=== PATIENT | female | born 1955 | race Caucasian/White ===

== ENCOUNTER 2019-03-07 05:57 | Day surgery (SDC) | payer BC ==
[2019-03-07] MEDS ORDERED: DIPRIVAN 200 MG/20 ML IV ONE (05:58)
[2019-03-07] MEDS ORDERED: Lactated Ringers 1,000 ML IV SCH (06:30)
--- NOTE | 2019-03-07 09:02 | OP ---
SURGERY DATE/TIME: 03/07/2019 0800 PREOPERATIVE DIAGNOSIS: Screening exam. POSTOPERATIVE DIAGNOSIS: Normal colon. PROCEDURE: Colonoscopy. SURGEON: Dr. Venegas. ANESTHESIA: MAC. Medications given by anesthesia department. HISTORY: The patient is a 63 year-old white female presenting now for screening colonoscopy. She reports she had one more than ten years ago which was normal. She was reappraised of the risks of the procedure including the risk of perforation, phlebitis, untoward reaction to medication, bleeding and missed lesions. The patient verbalized her understanding and desired to have the procedure performed. DESCRIPTION OF PROCEDURE: The patient was given the medications by the anesthesia department. She had continuous pulse oximetry, ECG monitoring, intermittent blood pressure monitoring and tidal CO2 monitoring during the examination. She was placed in the left lateral decubitus position. A digital rectal examination was performed and revealed normal anal sphincter tone and no masses. The flexible Olympus pediatric colonoscope was used to intubate the rectum. A view of the colon was developed sequentially to the cecum. Upon insertion and withdrawal, no mucosal lesions were encountered. The scope was removed from the patient who tolerated the procedure well and was sent back to OP recovery in good condition. The prep was noted to be good.
[2019-03-07 09:31] VITALS: BP 128/78; PULSE 58; O2SAT 97
== END 2019-03-07 09:25 | disposition home or self-care (01) ==
LOC: SDC 05:57
PROVIDERS: ATTEND Family Medicine
DX: Z12.11 Encounter for screening for malignant neoplasm of colon (principal)
CPT/HCPCS: J2704

== ENCOUNTER 2019-09-22 18:15 | Observation (INO) | payer MEDICARE, OTHER ==
[2019-09-22] MEDS ORDERED: Sodium Chloride 0.9% 1000 ML 1,000 ML IV STA (18:43)
[2019-09-22] MEDS ORDERED: MORPHINE SULFATE 4 MG INJ IV ONE (18:43)
[2019-09-22] MEDS ORDERED: BENADRYL 50 MG/ML IV ONE ×2 (18:43→21:10)
[2019-09-22] MEDS ORDERED: Protonix 40MG Tablet PO ONE (18:43)
[2019-09-22] MEDS ORDERED: Zofran 4 MG/2 ML VIAL IV ONE (18:43)
--- NOTE | 2019-09-22 18:48 | ERPHSYRPT ---
- History of Present Illness Time Seen by Provider: 09/22/19 18:30 Historian: patient Exam Limitations: no limitations Physician History: Sudden onset of LUQ abdominal pain while driving. 3 episodes of vomiting after pain occurred. Timing/Duration: hour(s) (1.5) Activities at Onset: other (driving a vehicle) Quality: aching Abdominal Pain Onset Location: LUQ Pain Radiation: back Severity of Pain-Max: severe Severity of Pain-Current: severe Modifying Factors: Improves With: nothing Associated Symptoms: nausea, other (hemoptysis), No back, No chest pain, No diaphoresis, No diarrhea, No fever/chills, No fatigue, No headache, No heartburn , No loss of appetite, No neck pain, No rash, No shortness of breath, No syncope , No vomiting, No weakness Previous symptoms: no prior history, no recent treatment Allergies/Adverse Reactions: Sulfa (Sulfonamide Antibiotics) Allergy (Unknown, Verified 09/22/19 18:43) Home Medications: Alendronate Sodium 70 mg [Fosamax 70 MG] 70 mg PO WEEKLY 02/27/19 [History ] Amlodipine Besylate 5 mg [Norvasc 5 mg] 5 mg PO DAILY 02/27/19 [History] Aspirin EC 81 mg [Ecotrin 81 mg] 81 mg PO DAILY 02/27/19 [History] Benazepril HCl 20 mg PO DAILY 02/27/19 [History] Calcium Carbonate/Vitamin D3 [Calcium 600 + Vit D Tablet] 1 each PO DAILY [History] Magnesium 250 mg PO DAILY 02/27/19 [History] Multivit-Min/Iron/Folic/Lutein [Multivitamin Women 50 Plus Tab] 1 each PO DAILY 02/27/19 [History] Simvastatin 20Mg [Zocor 20Mg] 20 mg PO DAILY 02/27/19 [History] - Review of Systems Constitutional: No Fever, No Chills Eyes: No Eye Pain, No Vision Changes Ears, Nose, & Throat: No Mouth Swelling, No Throat Swelling, No Stridor Respiratory: No Cough, No Dyspnea Cardiac: No Chest Pain, No Palpitations, No Syncope Abdominal/Gastrointestinal: Abdominal Pain, Nausea, Vomiting, Hematemesis, No Diarrhea, No Hematochezia, No Melena Genitourinary Symptoms: No Dysuria, No Frequency, No Hematuria, No Flank Pain Musculoskeletal: No Arthralgias, No Back Pain, No Neck Pain Skin: No Pruritis, No Rash Neurological: No Focal Weakness, No Parasthesia, No Seizure, No Vertigo Psychological: No Anxiety Hematologic/Lymphatic: No Easy Bleeding, No Easy Bruising All Other Systems: Reviewed and Negative - Past Medical History Neurological History: Other ENT History: No Pertinent History Cardiac History: High Cholesterol, Hypertension Respiratory History: No Pertinent History Endocrine Medical History: No Pertinent History Musculoskeletal History: Arthritis, Osteoarthritis GI Medical History: No Pertinent History History: No Pertinent History Psycho-Social History: No Pertinent History Female Reproductive Disorders: No Pertinent History Other Medical History: " Black out spell" when she was first diagnosed with HTN. Hx of skin cancer, hard of hearing. No hearing aids. Steroid injection in left knee. - Past Surgical History Past Surgical History: Yes Neuro Surgical History: No Pertinent History Cardiac: No Pertinent History Respiratory: No Pertinent History Gastrointestinal: No Pertinent History Genitourinary: No Pertinent History Musculoskeletal: Other Female Surgical History: Tubal Ligation, Other Other Surgical History: Laser surgery on cervix. Discectomy in neck.colonoscopy - Social History Smoking Status: Never smoker Exposure to second hand smoke: Yes Drug Use: none - Nursing Vital Signs Nursing Vital Signs: Initial Vital Signs Temperature 97.8 F 09/22/19 18:23 Pulse Rate 63 09/22/19 18:23 Respiratory Rate 18 09/22/19 18:23 Blood Pressure 155/84 09/22/19 18:23 O2 Sat by Pulse Oximetry 98 09/22/19 18:23 Pain Scale Pain Intensity 8 - Physical Exam General Appearance: no apparent distress, alert Eye Exam: PERRL/EOMI, eyes nml inspection, No scleral icterus Ears, Nose, Throat Exam: normal ENT inspection, TMs normal, pharynx normal, moist mucous membranes, No dry mucous membranes Neck Exam: normal inspection, non-tender, supple, full range of motion, No meningismus Respiratory Exam: normal breath sounds, lungs clear, airway intact, No chest tenderness, No respiratory distress, No diminished breath sounds, No accessory muscle use, No prolonged expirations, No crackles/rales, No rhonchi, No wheezing , No stridor Cardiovascular Exam: regular rate/rhythm, normal heart sounds, normal peripheral pulses, capillary refill <2 sec Gastrointestinal/Abdomen Exam: soft, normal bowel sounds, tenderness (LUQ), No distention, No mass, No ecchymosis, No rebound Back Exam: normal inspection, normal range of motion, No CVA tenderness, No vertebral tenderness, No rash Extremity Exam: normal inspection, normal range of motion, pelvis stable, No deformities, No martha's sign, No swelling Neurologic Exam: alert, oriented x 3, cooperative, occupational health and safety officer II-XII nml as tested, normal mood/affect, sensation nml, No motor deficits Skin Exam: normal color, warm, dry, No rash, No cyanosis SpO2 Interpretation: normal O2 Delivery: Room Air - Course Nursing assessment & vital signs reviewed: Yes EKG Interpreted by Me: RATE (69), Sinus Rhythm, NORMAL AXIS, NORMAL INTERVALS, NORMAL QRS, NORMAL ST-T, Other (negative previous EKG for comparison) - CT Exams Abdomen/Pelvis CT Interpretation: Other (Per Radiologist Interpretation: 2.3mm L UVJ stone with mild hydronephrosis and hydroureter. Small hepatic hemangioma and tiny hepatic cyst) Ordered Tests: Active Orders 24 hr Category Date Time Status EKG-ER Only STAT Care 09/22/19 18:43 Active IV Insertion STAT Care 09/22/19 18:43 Active NPO (ED) STAT Care 09/22/19 18:43 Active ABDOMEN AND PELVIS W/0 CONTRAS [CT] Stat Exams 09/22/19 18:44 Taken AMYLASE Stat Lab 09/22/19 18:30 Completed CBC W DIFF Stat Lab 09/22/19 18:43 Completed CMP Stat Lab 09/22/19 18:30 Completed CULTURE,URINE Stat Lab 09/22/19 Received LIPASE Stat Lab 09/22/19 18:30 Completed Lactic Acid Stat Lab 09/22/19 18:57 Completed PROTIME WITH INR Stat Lab 09/22/19 18:43 Completed TROPONIN Q3H Lab 09/22/19 18:45 Completed TROPONIN Q3H Lab 09/22/19 21:57 Received TROPONIN Q3H Lab 09/23/19 00:45 Ordered TROPONIN Q3H Lab 09/23/19 03:45 Ordered TROPONIN Q3H Lab 09/23/19 06:45 Ordered UA W/RFX UR CULTURE Stat Lab 09/22/19 Completed Medication Summary Discontinued Medications Generic Name Dose Route Start Last Admin Trade Name Freq PRN Reason Stop Dose Admin Diphenhydramine HCl 25 mg 09/22/19 18:43 09/22/19 19:06 Benadryl 50 Mg/Ml IV 09/22/19 18:44 25 mg STAT ONE Administration Diphenhydramine HCl Confirm 09/22/19 18:57 Benadryl 50 Mg/Ml Administered 09/22/19 18:58 Dose 50 mg .ROUTE .STK-MED ONE Diphenhydramine HCl 25 mg 09/22/19 21:10 09/22/19 21:17 Benadryl 50 Mg/Ml IV 09/22/19 21:11 25 mg STAT ONE Administration Diphenhydramine HCl Confirm 09/22/19 21:15 Benadryl 50 Mg/Ml Administered 09/22/19 21:16 Dose 50 mg .ROUTE .STK-MED ONE Hydromorphone HCl 1 mg 09/22/19 21:10 09/22/19 21:17 Hydromorphone 1 Mg/Ml Ampule IV 09/22/19 21:11 1 mg STAT ONE Administration Hydromorphone HCl Confirm 09/22/19 21:16 Hydromorphone 1 Mg/Ml Ampule Administered 09/22/19 21:17 Dose 1 mg .ROUTE .STK-MED ONE Sodium Chloride 1,000 mls @ 999 mls/hr 09/22/19 18:43 09/22/19 19:07 Sodium Chloride 0.9% 1000 Ml IV 09/22/19 19:43 999 mls/hr .Q1H1M STA Administration Sodium Chloride Confirm 09/22/19 18:58 Sodium Chloride 0.9% 1000 Ml Administered 09/22/19 18:59 Dose 1,000 mls @ ud .ROUTE .STK-MED ONE Morphine Sulfate 4 mg 09/22/19 18:43 09/22/19 19:06 Morphine Sulfate 4 Mg Inj IV 09/22/19 18:44 4 mg STAT ONE Administration Morphine Sulfate Confirm 09/22/19 18:58 Morphine Sulfate 4 Mg Inj Administered 09/22/19 18:59 Dose 4 mg .ROUTE .STK-MED ONE Ondansetron HCl 4 mg 09/22/19 18:43 09/22/19 19:05 Zofran 4 Mg/2 Ml Vial IV 09/22/19 18:44 4 mg STAT ONE Administration Ondansetron HCl Confirm 09/22/19 19:04 Zofran 4 Mg/2 Ml Vial Administered 09/22/19 19:05 Dose 4 mg .ROUTE .STK-MED ONE Pantoprazole Sodium 40 mg 09/22/19 18:43 09/22/19 19:12 Protonix 40mg Tablet PO 09/22/19 18:44 Not Given STAT ONE Pantoprazole Sodium 40 mg 09/22/19 18:58 09/22/19 19:11 Protonix 40 Mg Iv IV 09/22/19 18:59 40 mg STAT ONE Administration Pantoprazole Sodium Confirm 09/22/19 18:58 Protonix 40 Mg Iv Administered 09/22/19 18:59 Dose 40 mg IV .STK-MED ONE Lab/Rad Data: Laboratory Result Diagrams 09/22/19 18:43 09/22/19 18:30 Laboratory Results 09/22/19 09/22/19 09/22/19 Range/Units Unknown 18:57 18:45 WBC (4.0-10.5) K/mm3 RBC (4.1-5.4) M/mm3 Hgb (12.0-16.0) gm/dl Hct (35-47) % MCV (78-100) fl MCH (26-32) pg MCHC (32-36) g/dl RDW (11.5-14.0) % Plt Count (150-450) K/mm3 MPV (6-9.5) fl Gran % (36.0-66.0) % Eos # (Auto) (0-0.5) Absolute Lymphs (auto) (1.0-4.6) Absolute Monos (auto) (0.0-1.3) Lymphocytes % (24.0-44.0) % Monocytes % (0.0-12.0) % Eosinophils % (0.00-5.0) % Basophils % (0.0-0.4) % Absolute Granulocytes (1.4-6.9) Basophils # (0-0.4) PT (9.95-12.35) SECONDS INR (0.8-3.0) Sodium (137-145) mmol/L Potassium (3.5-5.1) mmol/L Chloride (98-107) mmol/L Carbon Dioxide (22-30) mmol/L Anion Gap (5-15) MEQ/L BUN (7-17) mg/dL Creatinine (0.52-1.04) mg/dL Estimated GFR ML/MIN Glucose (74-106) mg/dL Lactic Acid 1.2 (0.4-2.0) Calcium (8.4-10.2) mg/dL Total Bilirubin (0.2-1.3) mg/dL AST (14-36) U/L ALT (0-35) U/L Alkaline Phosphatase (38-126) U/L Troponin I < 0.012 (0.000-0.034) ng/mL Serum Total Protein (6.3-8.2) g/dL Albumin (3.5-5.0) g/dL Amylase (30-110) U/L Lipase (23-300) U/L Urine Color YELLOW (YELLOW) Urine Appearance CLOUDY (CLEAR) Urine pH 8.0 (5-6) Ur Specific Norris 1.010 (1.005-1.025) Urine Protein NEGATIVE (Negative) Urine Ketones NEGATIVE (NEGATIVE) Urine Blood NEGATIVE (0-5) James/ul Urine Nitrite NEGATIVE (NEGATIVE) Urine Bilirubin NEGATIVE (NEGATIVE) Urine Urobilinogen NEGATIVE (0-1) mg/dL Ur Leukocyte Esterase SMALL (NEGATIVE) Urine WBC (Auto) 11-15 (0-5) /HPF Urine RBC (Auto) 6-10 (0-2) /HPF U Epithel Cells (Auto) RARE (FEW) /HPF Urine Bacteria (Auto) RARE (NEGATIVE) /HPF Unidentified Crystals 10-25 (NEGATIVE) /HPF Other Casts (Auto) 0-2 (NEGATIVE) /LPF Urine Mucus (Auto) SLIGHT (NEGATIVE) /HPF Urine Culture Reflexed YES (NO) Urine Glucose NEGATIVE (NEGATIVE) mg/dL 09/22/19 09/22/19 09/22/19 Range/Units 18:43 18:43 18:30 WBC 9.1 (4.0-10.5) K/mm3 RBC 4.67 (4.1-5.4) M/mm3 Hgb 13.8 (12.0-16.0) gm/dl Hct 41.0 (35-47) % MCV 87.8 (78-100) fl MCH 29.6 (26-32) pg MCHC 33.7 (32-36) g/dl RDW 13.3 (11.5-14.0) % Plt Count 268 (150-450) K/mm3 MPV 10.0 H (6-9.5) fl Gran % 72.1 H (36.0-66.0) % Eos # (Auto) 0.07 (0-0.5) Absolute Lymphs (auto) 1.88 (1.0-4.6) Absolute Monos (auto) 0.58 (0.0-1.3) Lymphocytes % 20.6 L (24.0-44.0) % Monocytes % 6.3 (0.0-12.0) % Eosinophils % 0.8 (0.00-5.0) % Basophils % 0.2 (0.0-0.4) % Absolute Granulocytes 6.59 (1.4-6.9) Basophils # 0.02 (0-0.4) PT 12.4 H (9.95-12.35) SECONDS INR 1.10 (0.8-3.0) Sodium 144 (137-145) mmol/L Potassium 3.8 (3.5-5.1) mmol/L Chloride 109 H (98-107) mmol/L Carbon Dioxide 25 (22-30) mmol/L Anion Gap 13.7 (5-15) MEQ/L BUN 13 (7-17) mg/dL Creatinine 0.76 (0.52-1.04) mg/dL Estimated GFR > 60.0 ML/MIN Glucose 145 H (74-106) mg/dL Lactic Acid (0.4-2.0) Calcium 10.5 H (8.4-10.2) mg/dL Total Bilirubin 0.40 (0.2-1.3) mg/dL AST 23 (14-36) U/L ALT 22 (0-35) U/L Alkaline Phosphatase 63 (38-126) U/L Troponin I (0.000-0.034) ng/mL Serum Total Protein 7.3 (6.3-8.2) g/dL Albumin 4.4 (3.5-5.0) g/dL Amylase 65 (30-110) U/L Lipase 34 (23-300) U/L Urine Color (YELLOW) Urine Appearance (CLEAR) Urine pH (5-6) Ur Specific Norris (1.005-1.025) Urine Protein (Negative) Urine Ketones (NEGATIVE) Urine Blood (0-5) James/ul Urine Nitrite (NEGATIVE) Urine Bilirubin (NEGATIVE) Urine Urobilinogen (0-1) mg/dL Ur Leukocyte Esterase (NEGATIVE) Urine WBC (Auto) (0-5) /HPF Urine RBC (Auto) (0-2) /HPF U Epithel Cells (Auto) (FEW) /HPF Urine Bacteria (Auto) (NEGATIVE) /HPF Unidentified Crystals (NEGATIVE) /HPF Other Casts (Auto) (NEGATIVE) /LPF Urine Mucus (Auto) (NEGATIVE) /HPF Urine Culture Reflexed (NO) Urine Glucose (NEGATIVE) mg/dL - Progress Progress: improved Progress Note: 09/22/19 21:11 Pain has returned. Patient will be given Dilaudid and Benadryl. 09/22/19 22:15 Patient's pain has improved with no further vomiting. No abdominal pain on repeat evaluation. 09/22/19 22:20 Patient would like to be admitted as she still has pain and is worried she would not tolerate orally medications, beverage and food at this time. Discussed with .: Cristhian (22:24, Discussed the patient with Dr Venegas, patient's physician and Hospitalist. Dr Venegas accepted the patient for observation tp [facility]) Counseled pt/family regarding: lab results, diagnosis, need for follow-up, rad results - Departure Departure Disposition: Observation (to [facility] ) Clinical Impression: LUQ abdominal pain, Renal colic on left side, Ureterolithiasis, Hydronephrosis , left, Hydroureter on left, Hepatic hemangioma, Hepatic cyst Hypertension Qualifiers: Hypertension type: essential hypertension Qualified Code(s): I10 - Essential ( primary) hypertension Condition: Good Critical Care Time: No Referrals: MAMTA VENEGAS [Primary Care Provider] - Instructions: Kidney Stones (DC), Acute Abdomen (Belly Pain), Cysts in the Liver Additional Instructions: Return immediately to the emergency department if any worse abdominal pain, unable to take medication orally, new fevers, new painful urination or any other concerning signs or symptoms that were not present at today's emergency department visit for immediate re-evaluation in the emergency department. Prescriptions: Oxycodone HCl/Acetaminophen [Percocet 5-325 mg Tablet] 1 each PO Q6H PRN PRN # 12 tablet MDD 4 PRN Reason: Pain Ondansetron ODT 4 MG [Zofran Odt 4 mg] 4 mg PO Q8H PRN PRN #10 tab.rapdis PRN Reason: Nausea Tamsulosin HCl 0.4 mg [Flomax 0.4 MG] 0.4 mg PO DAILY #7 cap
[2019-09-22] MEDS ORDERED: BENADRYL 50 MG/ML ONE ×2 (18:57→21:15)
[2019-09-22] MEDS ORDERED: PROTONIX 40 MG IV IV ONE ×2 (18:58)
[2019-09-22] MEDS ORDERED: Sodium Chloride 0.9% 1000 ML 1,000 ML ONE (18:58)
[2019-09-22] MEDS ORDERED: MORPHINE SULFATE 4 MG INJ ONE (18:58)
[2019-09-22] MEDS ORDERED: Zofran 4 MG/2 ML VIAL ONE (19:04)
[2019-09-22 19:05] LABS: Absolute Neutrophil Ct (ANC) 6.59 (1.4-6.9); BASOPHIL % 0.2 % (0.0-0.4); Basophil (Absolute #) 0.02 (0-0.4); Eosinophil % 0.8 % (0.00-5.0); Eosinophil (Absolute #) 0.07 (0-0.5); Hemoglobin 13.8 gm/dl (12.0-16.0); Lymphocyte (Absolute #) 1.88 (1.0-4.6); Lymphocytes % 20.6 % (24.0-44.0); Mean Cell Volume 87.8 fl (78-100); Mean Corpuscular Hemoglobin 29.6 pg (26-32); Mean Corpuscular Hgb Concent. 33.7 g/dl (32-36); Monocyte (Absolute #) 0.58 (0.0-1.3); Monocytes % 6.3 % (0.0-12.0); Neutrophil % 72.1 % (36.0-66.0); Platelet Count 268 K/mm3 (150-450); Red Blood Count 4.67 M/mm3 (4.1-5.4); Red Cell Distribution Width 13.3 % (11.5-14.0); White Blood Count 9.1 K/mm3 (4.0-10.5)
[2019-09-22 19:15] LABS: INR 1.1 (0.8-3.0); PROTIME 12.4 SECONDS (9.95-12.35)
[2019-09-22 19:19] LABS: ALBUMIN 4.4 g/dL (3.5-5.0); ALKALINE PHOSPHATASE 63 U/L (38-126); AMYLASE 65 U/L (30-110); ANION GAP 13.7 MEQ/L (5-15); BLOOD UREA NITROGEN 13 mg/dL (7-17); CHLORIDE 109 mmol/L (98-107); Calcium 10.5 mg/dL (8.4-10.2); Carbon Dioxide 25 mmol/L (22-30); Creatinine 1 0.76 mg/dL (0.52-1.04); Glucose 145 mg/dL (74-106); LIPASE 34 U/L (23-300); Potassium 3.8 mmol/L (3.5-5.1); SGOT/AST 23 U/L (14-36); SGPT/ALT 22 U/L (0-35); SODIUM 144 mmol/L (137-145); Total Protein 7.3 g/dL (6.3-8.2)
[2019-09-22 19:21] LABS: Appearance CLOUDY (CLEAR); Bacteria RARE /HPF (NEGATIVE); Bilirubin NEGATIVE (NEGATIVE); Blood NEGATIVE Ery/ul (0-5); Epithelial Cells RARE /HPF (FEW); Glucose NEGATIVE (NEGATIVE); Ketones NEGATIVE (NEGATIVE); Leukocyte Esterase SMALL (NEGATIVE); Mucus SLIGHT /HPF (NEGATIVE); Nitrite NEGATIVE (NEGATIVE); Protein,Urine Dip NEGATIVE (Negative); Urobilinogen NEGATIVE mg/dL (0-1)
[2019-09-22] MEDS ORDERED: Hydromorphone 1 mg/ml Ampule IV ONE (21:10)
[2019-09-22] MEDS ORDERED: Hydromorphone 1 mg/ml Ampule ONE (21:16)
[2019-09-22] MEDS ORDERED: TYLENOL 325 MG PO PRN (23:03)
[2019-09-22] MEDS: Sodium Chloride 0.9% 1000 ML 1,000 ML IV SCH (23:52)
[2019-09-23] MEDS: Zofran 4 MG/2 ML VIAL IV PRN ×2 (00:47→08:25)
[2019-09-23] MEDS: DILAUDID 2 MG INJECTION IV PRN ×2 (00:47→08:25)
[2019-09-23 04:27] LABS: ANION GAP 14.2 MEQ/L (5-15); BLOOD UREA NITROGEN 12 mg/dL (7-17); CHLORIDE 108 mmol/L (98-107); Calcium 9.5 mg/dL (8.4-10.2); Carbon Dioxide 25 mmol/L (22-30); Creatinine 1 0.76 mg/dL (0.52-1.04); Glucose 149 mg/dL (74-106); Potassium 4.2 mmol/L (3.5-5.1); SODIUM 142 mmol/L (137-145)
[2019-09-23 05:35] LABS: Absolute Neutrophil Ct (ANC) 10.78 (1.4-6.9); BASOPHIL % 0.2 % (0.0-0.4); Basophil (Absolute #) 0.02 (0-0.4); Eosinophil (Absolute #) 0 (0-0.5); Hematocrit 40.9 % (35-47); Hemoglobin 13.5 gm/dl (12.0-16.0); Lymphocyte (Absolute #) 1.07 (1.0-4.6); Lymphocytes % 8.6 % (24.0-44.0); Mean Cell Volume 89.3 fl (78-100); Mean Corpuscular Hemoglobin 29.5 pg (26-32); Mean Platelet Volume 10.1 fl (6-9.5); Monocyte (Absolute #) 0.62 (0.0-1.3); Neutrophil % 86.2 % (36.0-66.0); Platelet Count 275 K/mm3 (150-450); Red Blood Count 4.58 M/mm3 (4.1-5.4); Red Cell Distribution Width 13.4 % (11.5-14.0); White Blood Count 12.5 K/mm3 (4.0-10.5)
--- NOTE | 2019-09-23 08:05 | HP ---
CHIEF COMPLAINT: Left lower quadrant abdominal pain. HISTORY OF PRESENT ILLNESS: The patient is a 64 year-old white female who reports sudden onset of abdominal pain when she was in her car getting ready to rock picker her granddaughter. The patient felt so bad she could not rock picker her granddaughter and presented to the emergency room. The patient was found in the emergency room to have a stone in the left ureterovesical junction with corresponding hydronephrosis mild in the left side. The patient denies having previous stones. She does report frequent urinary tract infections for which she has seen VALENTIN Montiel at Dr. Viveros's office and in fact saw him last week for what she thought was developing urinary tract infection. The patient has no family history of stones previously. She does take calcium for osteoporosis treatment as well as Fosamax. MEDICATIONS: Currently includes Fosamax 30 mg a day, Norvasc 5 mg a day, aspirin 81 mg a day, benazepril 20 mg a day, calcium with vitamin D at night, magnesium supplements for leg cramps, multivitamins, Simvastatin, Advair 20 mg a day. ALLERGIES: SULFA. PAST MEDICAL/SURGICAL HISTORY: Significant for osteoporosis and hypertension. The patient takes Simvastatin for hyperlipidemia. PHYSICAL EXAMINATION: Revealed a well-nourished, well-developed 64 year-old white female currently in no distress. Vital signs on admission showed temperature 97.8F, pulse 62, respiratory rate 18 and blood pressure 165/84. HEENT: Normocephalic, atraumatic. Pupils equal round reactive to light. Extraocular movements intact. Oropharynx is pink and moist. NECK: Supple without lymphadenopathy, thyromegaly or JVD. CHEST: Clear to auscultation. HEART: Regular rate and rhythm. ABDOMEN: Soft but tender in the left lower quadrant. No palpable masses. EXTREMITIES: Without cyanosis, clubbing or edema. NEUROLOGIC: The patient is alert and oriented x3. LAB DATA AND TESTS: Laboratory studies revealed a white count of 12,500, hemoglobin 13.5, PLT count 275,000. Troponins less than 0.012. Sugar 149, BUN 12, creatinine 0.76. Electrolytes were normal. The patient's amylase and lipase were normal. Liver enzymes were normal. She did have CT scan showing the 2 to 3 mm left ureterovesical junction stone with hydronephrosis. ASSESSMENT: A patient with renal colic. She has been admitted to the hospital for IV fluids and pain control. She will be continued on her usual home medications once the pain has been resolved for 12 hours. We will allow her to discharge home and a prescription for Percocet 5/325 mg #28 to take on an every four hours PRN basis for the pain. She is to follow up in the office in one week or return to the hospital if she has further problems in the interim.
[2019-09-23] MEDS: Sodium Chloride 0.9% 1000 ML 1,000 ML IV SCH (08:26)
[2019-09-23] MEDS ORDERED: Zofran 4 MG/2 ML VIAL IV PRN (08:45)
[2019-09-23] MEDS ORDERED: TYLENOL 325 MG PO PRN (08:45)
--- NOTE | 2019-09-23 08:53 | XRAY ---
Indication: Left lower quadrant pain, emesis, and hemoptysis. UTI. Multiple contiguous axial images obtained through the abdomen and pelvis without contrast as ordered. Comparison: None Lung bases demonstrates bibasilar fibrosis/scarring without focal infiltrate or effusion. Heart is not enlarged. Small hiatal hernia. Noncontrasted stomach and bowel loops appear nonobstructed. Normal appendix. Left UVJ demonstrates 2-3 mm calculus. Proximal left ureter is prominent up to 8mm and there is mild hydronephrosis with minimal perinephric stranding consistent with obstructive uropathy. No free fluid/air. Bilateral tubal ligation clips. Liver demonstrates at least 2 hepatic cysts, largest in the left lobe measuring 1.2 cm. A few hepatic/splenic calcified granulomas. Remaining liver, gallbladder, pancreas, spleen, adrenal glands, right kidney, right ureter, bladder, uterus, and aorta appear unremarkable for noncontrast exam. Osseous structures intact. Impression: 1. 2-3 mm distal left UVJ calculus producing obstructive uropathy as detailed. 2. Incidental small hiatal hernia, hepatic cysts, and evidence for old granulomatous disease. CT DI 21.74
[2019-09-23] MEDS ORDERED: MAG-OX 400 PO PRN (08:57)
[2019-09-23] MEDS ORDERED: [UNRECOGNIZED DRUG - OTHER] PO SCH (10:00)
[2019-09-23] MEDS ORDERED: IRON PO SCH (10:00)
[2019-09-23] MEDS ORDERED: MULTIVIT MIN PO SCH (10:00)
[2019-09-23] MEDS ORDERED: NORVASC 5 MG PO SCH (10:00)
[2019-09-23] MEDS ORDERED: Lotensin 10 MG PO SCH (10:00)
[2019-09-23] MEDS ORDERED: ENOXAPARIN SODIUM SQ SCH (10:00)
[2019-09-23] MEDS ORDERED: THERAGRAN MULTIVITAMIN PO SCH (10:00)
[2019-09-23] MEDS ORDERED: FLUZONE HIGH-DOSE 2019-20 SYR IM ONE (10:00)
[2019-09-23] MEDS ORDERED: BENAZEPRIL HCL 20 MG PO SCH (10:00)
[2019-09-23] MEDS ORDERED: Pepcid 20 MG PO SCH (10:00)
[2019-09-23] MEDS ORDERED: LUTEIN PO SCH (10:00)
[2019-09-23] MEDS ORDERED: Flomax 0.4 MG PO SCH (10:00)
[2019-09-23] MEDS ORDERED: FOLIC PO SCH (10:00)
[2019-09-23] MEDS ORDERED: PERCOCET TABLET 5/325MG PO PRN (10:23)
[2019-09-23] MEDS ORDERED: ZOFRAN ODT 4 MG PO PRN (10:23)
[2019-09-23 12:22] VITALS: BP 130/72; PULSE 70; O2SAT 97
[2019-09-23] MEDS ORDERED: NON-FORMULARY ITEM (Magnesium [Magnesium] 250 MG) PO SCH (22:00)
[2019-09-23] MEDS ORDERED: ECOTRIN 81 MG PO SCH (22:00)
[2019-09-23] MEDS ORDERED: ZOCOR 20MG PO SCH (22:00)
[2019-09-23] MEDS ORDERED: MAG-OX 400 PO SCH (22:00)
[2019-09-24] MEDS ORDERED: Fosamax 70 MG PO SCH (06:00)
== END 2019-09-23 14:40 | disposition home or self-care (01) ==
LOC: ED 18:15 → MED SURG 22:58
PROVIDERS: ADMIT Family Medicine; ATTEND Family Medicine
DX: N13.2 Hydronephrosis with renal and ureteral calculous obstruction (principal); I10 Essential (primary) hypertension; E78.5 Hyperlipidemia, unspecified; Z79.899 Other long term (current) drug therapy
CPT/HCPCS: 36000; 36415; 74176; 80048; 80053; 81001; 82150; 83605; 83690; 84484; 85025; 85610; 87086; 90662; 93005; 96374; 96375; 96376; 99284; 99285; J1170; J1200; J1650; J2270; J2405; A9270-GY

== ENCOUNTER 2019-09-24 14:07 | Observation (INO) | payer MEDICARE, OTHER ==
[2019-09-24 15:01] LABS: Hemoglobin 12.3 gm/dl (12.0-16.0); Mean Cell Volume 89.6 fl (78-100); Mean Corpuscular Hemoglobin 29.8 pg (26-32); Mean Corpuscular Hgb Concent. 33.2 g/dl (32-36); Mean Platelet Volume 9.7 fl (6-9.5); Platelet Count 204 K/mm3 (150-450); Red Blood Count 4.13 M/mm3 (4.1-5.4); Red Cell Distribution Width 13.2 % (11.5-14.0); White Blood Count 10.4 K/mm3 (4.0-10.5)
[2019-09-24 15:18] LABS: ALBUMIN 3.8 g/dL (3.5-5.0); ALKALINE PHOSPHATASE 49 U/L (38-126); ANION GAP 12.4 MEQ/L (5-15); BLOOD UREA NITROGEN 15 mg/dL (7-17); CHLORIDE 106 mmol/L (98-107); Calcium 9.3 mg/dL (8.4-10.2); Carbon Dioxide 25 mmol/L (22-30); Creatinine 1 0.72 mg/dL (0.52-1.04); Glucose 147 mg/dL (74-106); Potassium 3.6 mmol/L (3.5-5.1); SGOT/AST 22 U/L (14-36); SGPT/ALT 15 U/L (0-35); SODIUM 141 mmol/L (137-145); Total Protein 6.6 g/dL (6.3-8.2)
[2019-09-24] MEDS ORDERED: NORCO 5/325 MG PO PRN (15:18)
[2019-09-24] MEDS ORDERED: Zofran 4 MG/2 ML VIAL IV PRN (15:21)
[2019-09-24] MEDS ORDERED: MAG-OX 400 PO PRN (15:29)
[2019-09-24] MEDS: Sodium Chloride 0.9% 1000 ML 1,000 ML IV SCH (15:32)
--- NOTE | 2019-09-24 16:33 | XRAY ---
Indication: Left flank pain. Multiple contiguous axial images obtained through the abdomen and pelvis without contrast using renal stone protocol. Comparison: 2 days ago. Lung bases demonstrates new mild bibasilar dependent atelectasis again with scattered fibrosis/scarring. A few tiny right lower lobe calcified granulomas not previously imaged. Heart is not enlarged. Stable small hiatal hernia. Previous 2-3 mm left UVJ calculus now seen in the bladder lumen. Left ureter remains prominent along with stable mild hydronephrosis and minimal perinephric stranding. Urinary bladder demonstrates new tiny intraluminal air bubble either iatrogenic from recent catheterization versus gas-forming bacterial infection. Again no free fluid/air. Stable bilateral tubal ligation clips, small left upper pole renal exophytic cyst, hepatic cysts, and hepatic/splenic calcified granulomas. Remaining liver, gallbladder, pancreas, spleen, adrenal glands, right kidney, right ureter, uterus, and aorta appear unremarkable for noncontrast exam. Impression: 1. Previous left UVJ micro-calculus has passed into the bladder lumen with stable left hydronephrosis/hydroureter. 2. New urinary bladder intraluminal air bubble either echogenic versus gas-forming bacterial infection. 3. Again incidental small hiatal hernia, left renal cyst, hepatic cysts, and evidence for old granulomatous disease. CTDI 17.14
[2019-09-24 16:46] LABS: Appearance SLIGHTLY CLOUDY (CLEAR); Bacteria FEW /HPF (NEGATIVE); Bilirubin NEGATIVE (NEGATIVE); Blood MODERATE Ery/ul (0-5); Epithelial Cells RARE /HPF (FEW); Glucose 50 mg/dL (NEGATIVE); Ketones MODERATE (NEGATIVE); Leukocyte Esterase SMALL (NEGATIVE); Mucus SLIGHT /HPF (NEGATIVE); Nitrite NEGATIVE (NEGATIVE); Protein,Urine Dip NEGATIVE (Negative); Urobilinogen NEGATIVE mg/dL (0-1)
[2019-09-24] MEDS ORDERED: ZOCOR 20MG PO SCH (22:00)
[2019-09-24] MEDS ORDERED: NON-FORMULARY ITEM (Magnesium [Magnesium] 250 MG) PO SCH (22:00)
[2019-09-24] MEDS ORDERED: ECOTRIN 81 MG PO SCH (22:00)
[2019-09-24] MEDS: TORAdol 30 mg Injection IV SCH (23:48)
[2019-09-25] MEDS: Sodium Chloride 0.9% 1000 ML 1,000 ML IV SCH (01:13)
[2019-09-25] MEDS: TORAdol 30 mg Injection IV SCH (06:35)
[2019-09-25 07:49] VITALS: BP 107/59; PULSE 95; O2SAT 95
--- NOTE | 2019-09-25 09:08 | SSS ---
DISCHARGE DIAGNOSIS: RENAL COLIC. HOSPITAL COURSE: The patient is a 64 year-old white female who had been in the hospital two days previous with left kidney stone at the ureteropelvic junction. The patient began feeling better and was discharged home on oral medication. However, she had recurrence of the pain. She was seen in our office by Dr. Phillips and direct admitted to the hospital at that time. CT scan showed the kidney stone to have passed into the bladder and the patient is now pain free. Unfortunately, this is complicated by apparently gas in the bladder which has not had any instrumentation with Kraus catheter concerning therefore for bacterial infection. The patient did have fever. Her white count was only mildly abnormal with specific gravity of 1.020, moderate ketones, 11 to 15 white blood cells and 11 to 15 red blood cells per high power field. Her metabolic panel showed the glucose at 147 nonfasting and otherwise was entirely normal with BUN at 15 and creatinine 0.72 respectively. Her white count is 10,100, hemoglobin 12.3. The patient did report a fever prior to coming in of almost 101F. Due to the bladder air, the patient was placed on Levaquin. She does have an allergy to sulfa. The patient will be receiving 500 mg daily for seven days while cultures of urine are pending. We are also obtaining blood cultures. The patient apparently otherwise looks and feels okay and has been essentially afebrile since her admission here. We will have her follow up in the office in one week. We also instructed her to see her urologist. She sees VALENTIN Montiel at Dr. Viveros's office. She will also have an appointment to see me in the office in one week. She has her pain medication already written from previously but she should at this point not need any narcotic medications as the stone is now in the bladder.
[2019-09-25] MEDS ORDERED: NORVASC 5 MG PO SCH (10:00)
[2019-09-25] MEDS ORDERED: Lotensin 10 MG PO SCH (10:00)
[2019-09-25] MEDS ORDERED: MULTIVIT MIN PO SCH ×2 (10:00)
[2019-09-25] MEDS ORDERED: [UNRECOGNIZED DRUG - OTHER] PO SCH ×2 (10:00)
[2019-09-25] MEDS ORDERED: LUTEIN PO SCH ×2 (10:00)
[2019-09-25] MEDS ORDERED: FOLIC PO SCH ×2 (10:00)
[2019-09-25] MEDS ORDERED: Flomax 0.4 MG PO SCH (10:00)
[2019-09-25] MEDS ORDERED: BENAZEPRIL HCL 20 MG PO SCH (10:00)
[2019-09-25] MEDS ORDERED: MAG-OX 400 PO SCH (10:00)
[2019-09-25] MEDS ORDERED: IRON PO SCH ×2 (10:00)
[2019-09-25] MEDS ORDERED: THERAGRAN MULTIVITAMIN PO SCH (10:00)
[2019-09-30] MEDS ORDERED: Fosamax 70 MG PO SCH (06:00)
== END 2019-09-25 09:55 | disposition home or self-care (01) ==
LOC: MED SURG 14:07
PROVIDERS: ADMIT Family Medicine; ATTEND Family Medicine
DX: N23 Unspecified renal colic (principal); I10 Essential (primary) hypertension; E78.5 Hyperlipidemia, unspecified; Z79.899 Other long term (current) drug therapy
CPT/HCPCS: 36415; 74176; 80053; 81001; 85027; 87040; 87086; G0378; A9270-GY